=== PATIENT | male | born 1970 | race Caucasian/White ===

== ENCOUNTER 2024-05-06 18:33 | Emergency (ER) | payer MEDICAID ==
[~2024-05-06] VITALS: Ht 162.6 cm; Wt 65.0 kg
[2024-05-06 18:36] VITALS: O2SAT 97
[2024-05-06] MEDS ORDERED: KEPPSOL GT (18:37)
[2024-05-06 19:05] VITALS: TEMP 36.72516
[2024-05-06 20:47] LABS: CHLORIDE 105 mEq/L (98-107); SODIUM 139 mEq/L (136-145)
[2024-05-06 20:48] LABS: CARBON DIOXIDE 30 mEq/L (21-32)
[2024-05-06 20:49] LABS: CALCIUM 9.5 mg/dL (8.7-10.4)
[2024-05-06 20:50] LABS: BASOPHILS % 0.7 % (0.0-2.0); EOSINOPHILS % 0.6 % (0.0-5.0); HEMATOCRIT. 44.2 % (42.0-52.0); HEMOGLOBIN. 14.4 g/dL (14.0-18.0); LYMPHOCYTES % 30.8 % (20.0-50.0); MEAN CORPUSCULAR HEMOGLOBIN 29.9 pg (28.0-32.0); MEAN CORPUSCULAR HGB CONC 32.5 g/dL (31.0-37.0); MEAN CORPUSCULAR VOLUME 92.1 fL (80.0-94.0); MEAN PLATELET VOLUME 7.8 fl (7.4-10.4); NEUTROPHILS % 58.9 % (40.0-76.0); PLATELET 376 x1000/uL (130-400); RED BLOOD CELL COUNT 4.79 mill/uL (4.7-6.1); RED CELL DISTRIBUTION WIDTH 13.9 % (11.6-14.6); WHITE BLOOD COUNT 8.4 x1000/uL (4.5-11.0)
[2024-05-06 20:53] LABS: CREATININE 1.1 mg/dL (0.6-1.3); GLUCOSE 108 mg/dL (70-105); UREA NITROGEN BLOOD 11 mg/dL (9-23)
[2024-05-06] MEDS: LEVETIRACETAM 1000MG PREMIX 100 ML IV ONE (20:54)
[2024-05-06 23:00] VITALS: BP 132/84; PULSE 68; RESP 12; O2SAT 100
== END 2024-05-06 23:10 | disposition home or self-care (01) ==
LOC: ER 18:33
DX: R56.9 Unspecified convulsions (principal); E11.9 Type 2 diabetes mellitus without complications; I10 Essential (primary) hypertension
CPT/HCPCS: 80048; 85025; 36415; 93005; 96365; 99285; J1953; Z7610

== ENCOUNTER 2025-01-27 14:25 | Emergency (ER) | payer MEDICAID ==
[~2025-01-27] VITALS: Ht 165.1 cm; Wt 78.0 kg
[~2025-01-27 14:25] MED LIST: CHLO25CA11 MT; FOLI-43 PO; LEVE500T19 PO; LOSA25TA26 PO; MECL-264 PO; MULT-1318 PO; PANT40TA51 PO; SEMA0.253 SQ; THIA100T88 PO
[2025-01-27 14:32] VITALS: O2SAT 99
[2025-01-27] MEDS: LEVETIRACETAM 1000MG PREMIX 100 ML IV ONE (15:47)
[2025-01-27] MEDS: KETOROLAC 15MG/ML VIAL IV ONE (15:47)
[2025-01-27] MEDS: ACETAMINOPHEN 500MG TABLET PO ONE (15:48)
[2025-01-27] MEDS: SODIUM CHLORIDE 0.9% 1,000 ML IV ONE (15:48)
[2025-01-27 16:10] LABS: BASOPHILS % 0.5 % (0.0-2.0); EOSINOPHILS % 0.4 % (0.0-5.0); HEMATOCRIT. 44.8 % (42.0-52.0); HEMOGLOBIN. 14.8 g/dL (14.0-18.0); LYMPHOCYTES % 35.3 % (20.0-50.0); MEAN PLATELET VOLUME 7.5 fl (7.4-10.4); MONOCYTES % 6.5 % (2.0-8.0); NEUTROPHILS % 57.3 % (40.0-76.0); PLATELET 443 x1000/uL (130-400); RED BLOOD CELL COUNT 4.96 mill/uL (4.7-6.1); RED CELL DISTRIBUTION WIDTH 14.1 % (11.6-14.6)
[2025-01-27 16:39] LABS: CREATININE 1.0 mg/dL (0.6-1.3)
[2025-01-27 16:40] LABS: UREA NITROGEN BLOOD 8 mg/dL (9-23)
[2025-01-27 17:29] VITALS: BP 119/83; PULSE 65; RESP 16; TEMP 37; O2SAT 98
== END 2025-01-27 17:45 | disposition home or self-care (01) ==
LOC: ER 14:25
DX: G40.909 Epilepsy, unspecified, not intractable, without status epilepticus (principal); E11.9 Type 2 diabetes mellitus without complications; I10 Essential (primary) hypertension; Z79.85 Long-term (current) use of injectable non-insulin antidiabetic drugs; Z79.899 Other long term (current) drug therapy
CPT/HCPCS: 80048; 85025; 36415; 96374; 96375; 99285; J1953; J1885; J7030; Z7610 ×3; A4606